=== PATIENT | female | born 1950 | race Caucasian/White ===

== ENCOUNTER 2017-04-24 14:03 | Emergency (ER) | payer MEDICARE, OTHER ==
--- NOTE | 2017-04-24 15:03 | CR ---
Chest: Two views of the chest were obtained. Comparison: Prior chest x-ray of 02/22/10. Heart size is normal. Tortuous thoracic aorta is seen. Lungs are clear. Slight scoliosis is noted within the spine. Minimal degenerative endplate spurring is noted within the spine. Surgical clips are seen at the base of the neck. Impression: 1. Incidental findings. Nothing acute is identified on two-view chest x-ray. Diagnostic code #2
[2017-04-24] MEDS ORDERED: Ibuprofen 400 MG Tab PO ONE (15:17)
--- NOTE | 2017-04-24 15:22 | EDM.PDOC ---
ED HPI GENERAL MEDICAL PROBLEM - General Chief Complaint: Chest Pain Stated Complaint: SENT FROM [facility]-BACK AND CHEST PAIN Time Seen by Provider: 04/24/17 14:20 Source of Information: Reports: Patient History Limitations: Reports: No Limitations - History of Present Illness INITIAL COMMENTS - FREE TEXT/NARRATIVE: The patient presents with chest and back pain. This all started on Monday. The pain is sharp. It comes and goes. It gets better with ibuprofen. She feels it is costochondritis. She has had this before. She has no shortness of breath. She has no fever but she does have chills. She has no sore throat. She has no abdominal pain, nausea or vomiting. She has a cough. Her had knee surgery recently. She is concerned she may have influenza. She has no history of heart problems. Onset: Gradual Duration: Day(s): (3) Location: Reports: Chest, Back Quality: Reports: Sharp Severity: Moderate Improves with: Reports: None Worsens with: Reports: None Associated Symptoms: Reports: Chest Pain, Cough. Denies: Fever/Chills, Nausea/ Vomiting, Shortness of Breath Chest Pain Score (Numeric/FACES): 1 - Related Data Allergies Allergy/AdvReac Type Severity Reaction Status Date / Time all antibiotics? Allergy Hives Uncoded 04/24/17 14:39 Home Meds: Home Meds Losartan [Cozaar] 100 mg PO DAILY 04/24/17 [History] Thyroid Pill? 04/24/17 [History] ED ROS GENERAL - Review of Systems Review Of Systems: See Below Constitutional: Reports: Chills. Denies: Fever HEENT: Reports: No Symptoms Respiratory: Reports: No Symptoms Cardiovascular: Reports: Chest Pain Endocrine: Reports: No Symptoms GI/Abdominal: Reports: No Symptoms : Reports: No Symptoms Musculoskeletal: Reports: No Symptoms ED EXAM, GENERAL - Physical Exam Exam: See Below Exam Limited By: No Limitations General Appearance: Alert, No Apparent Distress Ears: Normal External Exam Nose: Normal Inspection Head: Atraumatic, Normocephalic Neck: Normal Inspection Respiratory/Chest: No Respiratory Distress, Lungs Clear, Normal Breath Sounds Cardiovascular: Regular Rate, Rhythm, No Edema, No Murmur GI/Abdominal: Soft, Non-Tender, No Organomegaly, No Mass Back Exam: Normal Inspection Extremities: Normal Inspection EKG INTERPRETATION EKG Date: 04/24/17 Time: 14:19 Rhythm: NSR Rate (Beats/Min): 78 [place]: Normal P-Wave: Present QRS: Normal ST-T: Normal QT: Normal Course - Vital Signs Last Recorded V/S: Last Vital Signs Temp 97.5 F 04/24/17 14:39 Pulse 80 04/24/17 14:39 Resp 16 04/24/17 14:39 BP 143/69 H 04/24/17 14:39 Pulse Ox 99 04/24/17 14:39 - Orders/Labs/Meds Orders: Active Orders 24 hr Category Date Time Status Cardiac Monitoring [RC] . DIRECTED Care 04/24/17 14:26 Active EKG Documentation Completion [RC] STAT Care 04/24/17 14:27 Active Labs: Laboratory Tests 04/24/17 04/24/17 04/24/17 Range/Units 15:00 15:00 15:00 WBC 6.42 (3.98-10.04) K/mm3 RBC 4.59 (3.98-5.22) M/mm3 Hgb 13.5 (11.2-15.7) gm/L Hct 41.2 (34.1-44.9) % MCV 89.8 (79.4-94.8) fl MCH 29.4 (25.6-32.2) pg MCHC 32.8 (32.2-35.5) g/dl RDW Std Deviation 42.2 (36.4-46.3) fL Plt Count 252 (182-369) K/mm3 MPV 9.8 (9.4-12.3) fl Neut % (Auto) 63.4 (34.0-71.1) % Lymph % (Auto) 27.1 (19.3-51.7) % [place] % (Auto) 8.1 (4.7-12.5) % Eos % (Auto) 0.9 (0.7-5.8) Baso % (Auto) 0.3 (0.1-1.2) % Neut # (Auto) 4.07 (1.56-6.13) K/mm3 Lymph # (Auto) 1.74 (1.18-3.74) K/mm3 [place] # (Auto) 0.52 H (0.24-0.36) K/mm3 Eos # (Auto) 0.06 (0.04-0.36) K/mm3 Baso # (Auto) 0.02 (0.01-0.08) K/mm3 D-Dimer, Quantitative 0.21 (0.19-0.59) mg/L Sodium 143 (136-145) mEq/L Potassium 3.3 L (3.5-5.1) mEq/L Chloride 107 (98-107) mEq/L Carbon Dioxide 26 (21-32) mEq/L Anion Gap 13.3 (5-15) BUN 9 (7-18) mg/dL Creatinine 0.7 (0.55-1.02) mg/dL Est Cr Clr Drug Dosing 67.34 mL/min Estimated GFR (MDRD) > 60 (>60) mL/min BUN/Creatinine Ratio 12.9 L (14-18) Glucose 139 H (80-115) mg/dL Calcium 9.0 (8.5-10.1) mg/dL Total Bilirubin 0.6 (0.2-1.0) mg/dL AST 15 (15-37) U/L ALT 20 (14-59) U/L Alkaline Phosphatase 61 (46-116) U/L Troponin I < 0.017 (0.00-0.056) ng/mL Total Protein 7.3 (6.4-8.2) g/dl Albumin 3.9 (3.4-5.0) g/dl Globulin 3.4 gm/dL Albumin/Globulin Ratio 1.2 (1-2) Meds: Medications Discontinued Medications Generic Name Dose Route Start Last Admin Trade Name Freq PRN Reason Stop Dose Admin Ibuprofen 400 mg 04/24/17 15:17 04/24/17 15:53 Motrin PO 04/24/17 15:18 400 mg ONETIME ONE Administration - Re-Assessments/Exams Free Text/Narrative Re-Assessment/Exam: 04/24/17 15:22 I ordered an EKG, CXR, labs and ibuprofen. Her EKG shows a NSR with no acute changes. Her CXR shows no infiltrated or anything acute. 04/24/17 16:05 Her CXR looks good. Her CBC and CMP look good. Her troponin is negative. She feels good. Her influenza is negative. This appears to be the costocondritis she had before. I will discharge her home. Departure - Departure Time of Disposition: 16:10 Disposition: Home, Self-Care 01 Condition: Good Clinical Impression: Costochondral chest pain Referrals: Sue Dawson, [employer] [Primary Care Provider] - Forms: ED Department Discharge Additional Instructions: Take ibuprofen for the pain. Please return if you are worse. - My Orders Last 24 Hours: My Active Orders 04/24/17 14:26 Cardiac Monitoring [RC] . DIRECTED 04/24/17 14:27 EKG Documentation Completion [RC] STAT - Assessment/Plan Last 24 Hours: My Active Orders 04/24/17 14:26 Cardiac Monitoring [RC] . DIRECTED 04/24/17 14:27 EKG Documentation Completion [RC] STAT
== END 2017-04-24 16:15 | disposition home or self-care (01) ==
LOC: JD.ED 14:03
DX: M94.0 Chondrocostal junction syndrome [Tietze] (principal); Z79.899 Other long term (current) drug therapy
CPT/HCPCS: 36415; 71046; 80053; 84484; 85025; 85379; 87804; 93005; 99285; A9270; 93010; 99284

== ENCOUNTER 2019-07-03 18:14 | Emergency (ER) | payer MEDICARE ==
--- NOTE | 2019-07-03 18:45 | EDM.PDOC ---
ED HPI GENERAL MEDICAL PROBLEM - General Chief Complaint: Upper Extremity Injury/Pain Stated Complaint: LEFT SHOULDER PAIN Time Seen by Provider: 07/03/19 18:24 Source of Information: Reports: Patient History Limitations: Reports: No Limitations - History of Present Illness INITIAL COMMENTS - FREE TEXT/NARRATIVE: Patient is a 69-year-old female who presents with complaints of left shoulder, left back, and left chest wall pain that started early this morning. Patient states she has had this type of pain intermittently over the last couple months. Symptoms will resolve, however they generally return after a few days. She has no significant cardiac history. She denies any shortness of breath or diaphoresis associated with this. She states last week she had a few episodes of chills with intermittent headache, however that has since resolved. No known fever. She denies any nausea, vomiting, or diarrhea. She has not had a cough or congestion. Area is tender to palpation and slightly worsens with deep breathing. She has been taking ibuprofen for the discomfort which she states does help slightly. Left Shoulder Pain Score (Numeric/FACES): 7 - Related Data Allergies Allergy/AdvReac Type Severity Reaction Status Date / Time doxycycline Allergy Chest Pain Verified 07/03/19 18:28 Fish Containing Products Allergy Hives Verified 07/03/19 18:28 tree nut Allergy Hives Verified 07/03/19 18:28 Home Meds: Home Meds Losartan [Cozaar] 100 mg PO DAILY 04/24/17 [History] Thyroid Pill? 04/24/17 [History] Naproxen [Naprosyn] 500 mg PO Q12HR 5 Days #10 tab 07/03/19 [Rx] Past Medical History - Past Health History Medical/Surgical History: Denies Medical/Surgical History Cardiovascular History: Reports: High Cholesterol - Past Surgical History GI Surgical History: Reports: Appendectomy, Cholecystectomy Social & Family History - Tobacco Use Smoking Status *Q: Never Smoker - Caffeine Use Caffeine Use: Reports: Coffee Review of Systems - Review of Systems Review Of Systems: Comprehensive ROS is negative, except as noted in HPI. ED EXAM, GENERAL - Physical Exam Exam: See Below Exam Limited By: No Limitations General Appearance: Alert, WD/WN, No Apparent Distress Ears: Normal External Exam, Normal [place], Hearing Grossly Normal, Normal TMs Respiratory/Chest: No Respiratory Distress, Lungs Clear, Normal Breath Sounds, No Accessory Muscle Use, Other (Tenderness to left posterior chest wall and mid axillary line.) Cardiovascular: Normal Peripheral Pulses, Regular Rate, Rhythm, No Edema, No Gallop, No JVD, No Murmur, No Rub Extremities: Other (Left shoulder tenderness and pain with range of motion. 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 EKG interpreted by Dr. Jesus Bhatia MD. Course - Vital Signs Last Recorded V/S: Last Vital Signs Temp 98.1 F 07/03/19 18:22 Pulse 73 07/03/19 18:22 Resp 18 07/03/19 18:22 BP 177/95 H 07/03/19 18:22 Pulse Ox 98 07/03/19 18:22 - Orders/Labs/Meds Orders: Active Orders 24 hr Category Date Time Status EKG Documentation Completion [RC] STAT Care 07/03/19 18:41 Active Chest 2V [CR] Stat Exams 07/03/19 18:40 Taken Shoulder Comp Lt [CR] Stat Exams 07/03/19 18:41 Taken Labs: Laboratory Tests 07/03/19 07/03/19 Range/Units 18:58 18:58 WBC 6.73 (3.98-10.04) K/mm3 RBC 4.41 (3.98-5.22) M/mm3 Hgb 13.1 (11.2-15.7) gm/dl Hct 40.5 (34.1-44.9) % MCV 91.8 (79.4-94.8) fl MCH 29.7 (25.6-32.2) pg MCHC 32.3 (32.2-35.5) g/dl RDW Std Deviation 44.7 (36.4-46.3) fL Plt Count 274 (182-369) K/mm3 MPV 9.9 (9.4-12.3) fl Neut % (Auto) 57.2 (34.0-71.1) % Lymph % (Auto) 31.8 (19.3-51.7) % [place] % (Auto) 8.5 (4.7-12.5) % Eos % (Auto) 2.1 (0.7-5.8) Baso % (Auto) 0.4 (0.1-1.2) % Neut # (Auto) 3.85 (1.56-6.13) K/mm3 Lymph # (Auto) 2.14 (1.18-3.74) K/mm3 [place] # (Auto) 0.57 H (0.24-0.36) K/mm3 Eos # (Auto) 0.14 (0.04-0.36) K/mm3 Baso # (Auto) 0.03 (0.01-0.08) K/mm3 Sodium 142 (136-145) mEq/L Potassium 3.6 (3.5-5.1) mEq/L Chloride 106 (98-107) mEq/L Carbon Dioxide 26 (21-32) mEq/L Anion Gap 13.6 (5-15) BUN 12 (7-18) mg/dL Creatinine 0.8 (0.55-1.02) mg/dL Est Cr Clr Drug Dosing 59.41 mL/min Estimated GFR (MDRD) > 60 (>60) mL/min BUN/Creatinine Ratio 15.0 (14-18) Glucose 103 (80-115) mg/dL Calcium 8.7 (8.5-10.1) mg/dL Total Bilirubin 0.5 (0.2-1.0) mg/dL AST 13 L (15-37) U/L ALT 19 (14-59) U/L Alkaline Phosphatase 67 (46-116) U/L Troponin I < 0.017 (0.00-0.056) ng/mL Total Protein 7.0 (6.4-8.2) g/dl Albumin 3.9 (3.4-5.0) g/dl Globulin 3.1 gm/dL Albumin/Globulin Ratio 1.3 (1-2) - Re-Assessments/Exams Free Text/Narrative Re-Assessment/Exam: 07/03/19 19:57 Patient's work-up was found to be grossly unremarkable. Labs are completely normal. Chest x-ray was normal x-ray of the left shoulder does appear to have some degenerative changes but nothing acute. EKG was negative for any acute changes. We will discharge the patient home with prescription for Naprosyn. Discharge instructions as documented. Departure - Departure Time of Disposition: 19:58 Disposition: Home, Self-Care 01 Condition: Fair Clinical Impression: Costochondral chest pain Shoulder pain, left Qualifiers: Chronicity: acute Qualified Code(s): M25.512 - Pain in left shoulder - Discharge Information *PRESCRIPTION DRUG MONITORING PROGRAM REVIEWED*: No *COPY OF PRESCRIPTION DRUG MONITORING REPORT IN PATIENT HARVEY: No Prescriptions: Naproxen [Naprosyn] 500 mg PO Q12HR 5 Days #10 tab Instructions: Musculoskeletal Pain Referrals: Vinita Vera NP [Primary Care Provider] - Forms: ED Department Discharge Additional Instructions: You were seen in the emergency department today for left-sided chest wall pain as well as left-sided shoulder pain. Your work-up included blood work, EKG, chest x-ray, and a x-ray of that left shoulder. The work-up was found to be normal with the exception of some degenerative changes in the left shoulder consistent with osteoarthritis. The cause of the pain in your chest is likely skill skeletal. A prescription for Naprosyn has been sent to [facility] pharmacy. Take this medication as prescribed for the next 5 days. Do not take ibuprofen in addition to this pain medication as they work by similar mechanisms. You may continue to apply heat to the shoulder as needed. If this shoulder pain becomes an ongoing issue for you, I would recommend that you schedule follow-up appointment with your primary care provider to discuss treatment options. Return to the ER as needed. Sepsis Event Note - Evaluation Sepsis Screening Result: No Definite Risk - Focused Exam Vital Signs: Vital Signs Temp Pulse Resp BP Pulse Ox 07/03/19 18:22 98.1 F 73 18 177/95 H 98 Date Exam was Performed: 07/03/19 Time Exam was Performed: 20:53 - My Orders Last 24 Hours: My Active Orders 07/03/19 18:40 Chest 2V [CR] Stat 07/03/19 18:41 EKG Documentation Completion [RC] STAT Shoulder Comp Lt [CR] Stat - Assessment/Plan Last 24 Hours: My Active Orders 07/03/19 18:40 Chest 2V [CR] Stat 07/03/19 18:41 EKG Documentation Completion [RC] STAT Shoulder Comp Lt [CR] Stat
--- NOTE | 2019-07-04 08:31 | CR ---
Left shoulder: 3 views of the left shoulder were obtained. Comparison: No prior shoulder imaging is available. Mild joint space narrowing is noted within the acromioclavicular joint. No abnormal inferior spurring is seen within the acromioclavicular joint. Minimal spurring is noted off the glenoid rim. No acute fracture, dislocation or other bony abnormality is seen. Surgical clips are seen at the base of the neck. Impression: 1. Mild degenerative change. Previous neck surgery. 2. Nothing acute is appreciated on left shoulder study. Diagnostic code #2 This report was dictated in MDT
--- NOTE | 2019-07-04 08:32 | CR ---
Chest: 2 views of the chest were obtained. Comparison: Prior chest x-ray of 04/24/17. Heart size is normal. Tortuous thoracic aorta is seen. Lungs are clear with no acute parenchymal change. Minimal scoliosis is noted within the spine. Mild scattered endplate osteophytes are seen. Slight compression deformity noted with the lower thoracic spine which appear stable. Impression: 1. Findings as noted above. 2. Nothing acute is appreciated. Diagnostic code #2 This report was dictated in MDT
== END 2019-07-03 20:10 | disposition home or self-care (01) ==
LOC: JD.ED 18:14
DX: M25.512 Pain in left shoulder (principal); R07.1 Chest pain on breathing; Z88.1 Allergy status to other antibiotic agents; Z91.018 Allergy to other foods; Z91.013 Allergy to seafood; Z79.899 Other long term (current) drug therapy
CPT/HCPCS: 36415; 71046; 71046-26; 73030-26-LT; 73030-LT; 80053; 84484; 85025; 93005; 93010; 99283; 99285-25

== ENCOUNTER 2019-09-20 06:09 | Emergency (ER) | payer MEDICARE ==
--- NOTE | 2019-09-20 06:56 | EDM.PDOC ---
ED HPI GENERAL MEDICAL PROBLEM - General Chief Complaint: Upper Extremity Injury/Pain Stated Complaint: arm pain Time Seen by Provider: 09/20/19 06:20 Source of Information: Reports: Patient History Limitations: Reports: No Limitations - History of Present Illness INITIAL COMMENTS - FREE TEXT/NARRATIVE: Mrs. Canales is a very pleasant 69-year-old woman with a past medical history significant for anxiety disorder, who now presents to the ED complaining of bilateral forearm burning. She states that she has been experiencing these symptoms for several months. She also has been having frequent headaches, and a burning sensation in her mouth whenever she tries to eat. Her former PCP ran a number of blood tests, including vitamin levels, and apparently everything was normal. The patient was started on Xanax about 1 month ago, then the patient switched to her current PCP, who would like to get her off the Xanax therefore prescribed Paxil, which she started this past 09/17/2019. The patient is concerned that the Paxil is responsible for her current symptoms, even though her symptoms began before started taking Paxil. Here in the ED, the patient's initial BP is found to be mildly elevated at 157/86, otherwise, she is hemodynamically stable, afebrile, saturating 98% on room air. Other than her forearm and mouth burning sensation and frequent headaches, the patient denies recent fever, chills, sore throat, ear pain, nasal or sinus congestion, cough, dyspnea, chest pain, palpitations, nausea, vomiting, constipation, diarrhea, abdominal pain, urinary symptoms, recent weight gain or weight loss, recent bloody bowel movements or black bowel movements, recent joint aches, or rashes. The patient's PCP is Dr. Darien Taveras. Bilateral Lower Arm Pain Score (Numeric/FACES): 10 - Related Data Allergies Allergy/AdvReac Type Severity Reaction Status Date / Time doxycycline Allergy Chest Pain Verified 09/20/19 06:16 Fish Containing Products Allergy Hives Verified 09/20/19 06:16 tree nut Allergy Hives Verified 09/20/19 06:16 Home Meds: Home Meds ALPRAZolam [Xanax] 0.25 mg PO QID 09/20/19 [History] Levothyroxine [Synthroid] 88 mcg PO ACBREAKFAST 09/20/19 [History] Losartan [Cozaar] 100 mg PO DAILY 09/20/19 [History] PARoxetine [Paxil] 10 mg PO DAILY 09/20/19 [History] Past Medical History Cardiovascular History: Reports: Hypertension, Other (See Below) (Varicose veins) Musculoskeletal History: Reports: Arthritis, Fracture (left wrist) Psychiatric History: Reports: Anxiety Endocrine/Metabolic History: Reports: Hypothyroidism (following thyroidectomy for a goiter) - Past Surgical History HEENT Surgical History: Reports: Cataract Surgery (bilateral) Cardiovascular Surgical History: Reports: Other (See Below) (Left leg vein stripping) GI Surgical History: Reports: Appendectomy (Jan 2019) Female Surgical History: Reports: Section (x 2), D&C (x 4 or 5), Hysterectomy (partial, 1989) Endocrine Surgical History: Reports: Thyroidectomy Social & Family History - Tobacco Use Smoking Status *Q: Never Smoker - Caffeine Use Caffeine Use: Reports: Coffee - Alcohol Use Alcohol Use History: No - Recreational Drug Use Recreational Drug Use: No - Living Situation & Occupation Living situation: Reports: , with Spouse Occupation: Retired ED ROS GENERAL - Review of Systems Review Of Systems: Comprehensive ROS is negative, except as noted in HPI. ED EXAM, GENERAL - Physical Exam Exam: See Below Exam Limited By: No Limitations General Appearance: Alert, No Apparent Distress, Anxious, Thin Eye Exam: Bilateral Eye: EOMI, Normal Inspection Ears: Normal External Exam, Hearing Grossly Normal Nose: Normal Inspection Throat/Mouth: Normal Inspection, Normal Lips, Normal Voice, No Airway Compromise Head: Atraumatic, Normocephalic Neck: Normal Inspection, Full Range of Motion Respiratory/Chest: No Respiratory Distress, Lungs Clear, Normal Breath Sounds, No Accessory Muscle Use Cardiovascular: Normal Peripheral Pulses, Regular Rate, Rhythm, No Edema, No Gallop, No JVD, No Murmur, No Rub Peripheral Pulses: 3+: Radial (L), Radial (R) GI/Abdominal: Normal Bowel Sounds, Soft, Non-Tender, No Organomegaly, No Distention, No Abnormal Bruit, No Mass (Female) Exam: Deferred Rectal (Female) Exam: Deferred Back Exam: Normal Inspection, Full Range of Motion, NT Extremities: Normal Inspection, Normal Range of Motion, No Pedal Edema, Normal Capillary Refill Neurological: Alert, Oriented, Normal Cognition, No Motor/Sensory Deficits Psychiatric: Anxious Skin Exam: Warm, Dry, Intact, Normal Color, No Rash Course - Vital Signs Last Recorded V/S: Last Vital Signs Temp 36.6 C 09/20/19 06:19 Pulse 76 09/20/19 06:19 Resp 19 09/20/19 06:19 BP 157/86 H 09/20/19 06:19 Pulse Ox 98 09/20/19 06:19 - Re-Assessments/Exams Free Text/Narrative Re-Assessment/Exam: 09/20/19 06:51 As above, the patient has been experiencing several months of bilateral forearm burning, frequent headaches, and at least a month of a burning sensation in her mouth when she eats, all thought to be due to anxiety. She was started on Xanax about 1 month ago, then Paxil this past Monday, with the intention of getting her off the Xanax once the Paxil becomes effective. I believe the patient came to the ED today simply looking for another medical opinion, since none of her symptoms are new. I explained to the patient that her symptoms are not due to either the Xanax or Paxil, as all of these symptoms developed before she was started on these medicines, and at least with respect to Paxil, she should not expect any significant improvement in her symptoms until she has been on it for 3 to 4 weeks. She will simply need to be patient. I encouraged her to continue to take the Paxil as prescribed, and to try to take as little Xanax as necessary. Departure - Departure Time of Disposition: 06:53 Disposition: Home, Self-Care 01 Condition: Good Clinical Impression: Anxiety - Discharge Information *PRESCRIPTION DRUG MONITORING PROGRAM REVIEWED*: Not Applicable *COPY OF PRESCRIPTION DRUG MONITORING REPORT IN PATIENT HARVEY: Not Applicable Instructions: Living With Anxiety Referrals: Darien Taveras MD [Physician] - Forms: ED Department Discharge Additional Instructions: You were seen in the emergency room for several months of a burning sensation to both of your forearms, frequent headaches, and a burning sensation in your mouth when you eat for the past month or so. As discussed, it is very possible that the symptoms are due to anxiety. As discussed, the effects of Paxil take several weeks to take effect, and until that time, you will need to be patient. We recommend that you continue to take your Paxil as prescribed. We also recommend that you try to use as little Xanax as necessary. Follow-up with your PCP, Dr. Darien Taveras, as needed. If any other problems, please do not hesitate to return to the ER. Sepsis Event Note (ED) - Evaluation Sepsis Screening Result: No Definite Risk - Focused Exam Vital Signs: Vital Signs Temp Pulse Resp BP Pulse Ox 09/20/19 06:19 36.6 C 76 19 157/86 H 98
== END 2019-09-20 07:15 | disposition home or self-care (01) ==
LOC: JD.ED 06:09
DX: F41.9 Anxiety disorder, unspecified (principal); E03.9 Hypothyroidism, unspecified; I10 Essential (primary) hypertension; Z79.899 Other long term (current) drug therapy; Z88.1 Allergy status to other antibiotic agents; Z91.013 Allergy to seafood; Z91.018 Allergy to other foods
CPT/HCPCS: 99282; 99283

== ENCOUNTER 2022-07-16 04:15 | Emergency (ER) | payer MEDICARE, OTHER ==
[2022-07-16] MEDS ORDERED: Lactated Ringers 1,000 ML IV ONE (04:22)
[2022-07-16] MEDS ORDERED: Ketorolac 15 MG/ML SDV IVPUSH ONE (04:22)
[2022-07-16] MEDS ORDERED: Ondansetron 4 MG/2 ML SDV IVPUSH ONE (05:20)
[2022-07-16] MEDS ORDERED: Morphine 4 MG/ML Syringe IVPUSH ONE (05:20)
[2022-07-16] MEDS ORDERED: Acetaminophen/HYDROcodone 325-10 MG Tab PO ONE (06:53)
== END 2022-07-16 07:09 | disposition home or self-care (01) ==
LOC: JD.ED 04:15
DX: N13.2 Hydronephrosis with renal and ureteral calculous obstruction (principal); I10 Essential (primary) hypertension; E03.9 Hypothyroidism, unspecified; Z88.1 Allergy status to other antibiotic agents; Z91.013 Allergy to seafood; Z91.018 Allergy to other foods; Z79.899 Other long term (current) drug therapy
CPT/HCPCS: 36415; 74176; 80053; 81001; 85025; 96361; 96374; 96375; 99284; A9270; J1885; J2270; J2405; J7120